=== PATIENT | male | born 1985 | race Caucasian/White ===

== ENCOUNTER 2017-02-04 16:37 | Emergency (ER) | payer OTHER ==
--- NOTE | 2017-02-04 16:46 | EDPHY ---
H & P Time Seen by Provider: 02/04/17 16:40 HPI/ROS: CHIEF COMPLAINT: Right clavicle pain HISTORY OF PRESENT ILLNESS: This patient is a 31-year-old male who presents to the Emergency Department via EMS with right clavicle pain. He tumbled down a hill while hiking in [facility] today. He reports that he slipped and tumbled head first down a steep slope sustaining trauma to his head, clavicle, and knees. Immediate onset severe right clavicle pain. Pain increases with any movement. He denies headache, neck pain, or back pain. He denies any additional injuries. REVIEW OF SYSTEMS: Constitutional: No weakness Eyes: No visual changes or eye pain ENT: No dental trauma Neck: No pain or injury Respiratory: No shortness of breath Cardiac: +pain over right clavicle Gastrointestinal: No abdominal pain, no vomiting Back: No pain or injury Genitourinary: No hematuria Musculoskeletal: No joint pain Skin: +scalp laceration, +multiple superficial abrasions Neurological: No headache, +lightheadedness Past Medical/Surgical History: Denies. Social History: [place] at bedside. Physical Exam: General Appearance: Alert, pale, appears in pain Head: Two 2mm puncture wounds localized to the posterior aspect of the scalp Eyes: No conjunctival erythema, PERRLA, EOMI ENT, Mouth: No hemotympanum, no oral trauma, no bony tenderness Neck: Non-tender, full range of motion without pain Respiratory: Tenderness and swelling over the right clavicle, lungs clear bilaterally Cardiovascular: Regular rate and rhythm Abdomen: Abdomen is soft and non tender Skin: Multiple small, superficial abrasions to both lower extremities, right posterior shoulder abrasion Back: No midline T/L/S tenderness Extremities: Pelvis is stable and nontender; no extremity tenderness or deformity, full range of motion without pain Neurological: A&Ox3, normal motor function, normal sensory exam, cranial nerves intact Psychiatric: Mood and affect normal Constitutional: Initial Vital Signs Temperature (C) 36.6 C 02/04/17 16:43 Heart Rate 60 02/04/17 16:43 Respiratory Rate 18 02/04/17 16:43 Blood Pressure 123/79 H 02/04/17 16:43 O2 Sat (%) 97 02/04/17 16:43 O2 Delivery Mode Room Air Allergies/Adverse Reactions: No Known Allergies Allergy (Unverified 02/04/17 16:48) Home Medications: Medication Instructions Recorded Hydrocodone/APAP 5/325 [[place] 1 - 2 tab PO Q4H PRN #15 tab 02/04/17 5/325] Medical Decision Making - Diagnostics Imaging Results: X-ray independently reviewed by me reveals a displaced right clavicle fracture. Procedures: Procedure: Laceration repair. Verbal consent was obtained from the patient. The 4mm gaping puncture wound on the scalp was anesthetized using 1% lidocaine. The wound was cleaned with standard ED protocol, draped and explored to its base with a gloved finger. The wound was repaired with a single staple. The wound repair was simple. The procedure was performed by myself, Dr. Troncoso. ED Course/Re-evaluation: Normally healthy 31-year-old male visiting [place] presents via EMS after he tumbled down a steep slope hiking today. He reports head trauma but has no headache and a normal neuro exam. Neuro imaging is not indicated. His primary injury appears to be to his right clavicle where he reports moderate pain. Will proceed with wound care and x-ray of the clavicle. IV established. 6mg IV morphine administered for pain. Laceration repair performed by myself (see procedure note). X-ray reveals a right mid-shaft clavicle fracture with displacement. Patient will be placed in a sling. He will call tomorrow to schedule a follow-up appointment with the on-call orthopedist, Dr. Da Silva. He will be given hydrocodone for pain and wound care instructions. He understands that his staple needs to be removed in one week. He is discharged home in good condition with customary return precautions. Differential Diagnosis: The differential diagnosis for the patient's trauma included but was not limited to intracranial injury, long bone and pelvic bone fractures, spinal injury, intra-abdominal injury, and intra-thoracic injury. - Data Points Medications Given: Discontinued Medications Morphine Sulfate (Morphine) 6 mg IVP EDNOW ONE Stop: 02/04/17 16:49 Last Admin: 02/04/17 17:10 Dose: 6 mg Ondansetron HCl (Zofran) 4 mg IVP EDNOW ONE Stop: 02/04/17 16:49 Last Admin: 02/04/17 17:10 Dose: 4 mg Departure - Departure Disposition: Home, Routine, Self-Care Clinical Impression: Clavicle fracture Qualifiers: Encounter type: initial encounter Clavicle location: shaft Fracture type: closed Fracture alignment: displaced Laterality: right Qualified Code(s): S42.021A - Displaced fracture of shaft of right clavicle, initial encounter for closed fracture Laceration of scalp Qualifiers: Encounter type: initial encounter Qualified Code(s): S01.01XA - Laceration without foreign body of scalp, initial encounter Condition: Good Instructions: Clavicle Fracture (ED), Laceration (ED), Staple Care (ED) Additional Instructions: 1. Take hydrocodone as prescribed, as needed for pain. 2. Call tomorrow to schedule an appointment with Dr. Da Silva to address your clavicle fracture. 3. Keep your wound clean and dry. Return to the Emergency Department for removal of your staple in 7 days. 4. Return to the Emergency Department immediately with severe pain, discharge from your wound, or for other serious concerns. Referrals: Radha Da Silva MD [Medical Doctor] - As per Instructions Prescriptions: Hydrocodone/APAP 5/325 [[place] 5/325] 1 - 2 tab PO Q4H PRN #15 tab PRN Reason: Pain, Moderate Report Scribed for: Jaci Troncoso Report Scribed by: Vandana Saucedo Date of Report: 02/04/17 Time of Report: 16:42 Physician Review and Approval Statement: 02/04/17 16:42 Portions of this note were transcribed by a medical records manager. I personally performed a history, physical exam, medical decision making, and confirmed accuracy of information the transcribed note.
[2017-02-04 16:47] VITALS: TEMP 97.9
[2017-02-04] MEDS ORDERED: ONDANSETRON 4 MG/2 ML VIAL IVP ONE (16:48)
[2017-02-04 17:40] VITALS: RESP 16
[2017-02-04 18:26] VITALS: BP 121/82; PULSE 60; O2SAT 100
== END 2017-02-04 18:26 | disposition home or self-care (01) ==
PROC: 0HQ0XZZ Repair Scalp Skin, External Approach (ICD-10-PCS; principal; 2017-02-04)
DX: S42.021A Displaced fracture of shaft of right clavicle, initial encounter for closed fracture (principal); S01.01XA Laceration without foreign body of scalp, initial encounter; W17.81XA Fall down embankment (hill), initial encounter; Y92.828 Other wilderness area as the place of occurrence of the external cause; Y99.8 Other external cause status; Y93.01 Activity, walking, marching and hiking
CPT/HCPCS: 96374; J2405